=== PATIENT | male | born 1970 | race Caucasian/White ===

== ENCOUNTER 2021-04-11 10:48 | Emergency (ER) | payer SELFPAY ==
[2021-04-11] MEDS ORDERED: Sodium Chloride 0.9% 2.5 ML Syringe FLUSH PRN (12:13)
[2021-04-11] MEDS ORDERED: Sodium Chloride 0.9% 10 ML Syringe FLUSH PRN (12:13)
[2021-04-11] MEDS ORDERED: Ondansetron 4 MG/2 ML SDV IVPUSH ONE (12:20)
[2021-04-11] MEDS ORDERED: Ketorolac 30 MG/ML SDV IVPUSH ONE (12:20)
[2021-04-11] MEDS ORDERED: Morphine 4 MG/ML Syringe IVPUSH ONE ×3 (12:20→14:23)
--- NOTE | 2021-04-11 12:36 | PCM.SN.2 ---
- Free Text/Narrative Note: EKG done 04/11/2021 at 12:22 PM sinus rhythm heart rate 56 IA 155 axis I [address] slightly elevated at J-point in the lateral leads consistent with early repole T waves inverted in lead III and aVF. Compared to 08/30/2015 when he was seen for chest pain and rule out myocardial infarction the inversions of the T waves are new in the ST takeoff is slightly elevated. Computer read this is an acute SC but the patient does not have chest pain per se does have a tender abdomen and is a non-smoker and not diabetic. The patient will need follow-up EKG although this does not look like an acute SC. Impression early repole and T wave inversions suggesting the possibility of an intervening event including possible pericarditis between 2014 and now.
[2021-04-11 12:49] LABS: BLOOD UREA NITROGEN,BUN 22 mg/dL (7.0-18.0); CARBON DIOXIDE,CO2 27.6 mmol/L (21.0-32.0); CHLORIDE,CL 103 mmol/L (98-107); GLUCOSE RANDOM 90 mg/dL (74-106); LIPASE 159 U/L (73-393); POTASSIUM,K 4.5 mmol/L (3.5-5.1); SODIUM,NA 137 mmol/L (136-148)
[2021-04-11] MEDS ORDERED: Aspirin 81 MG Tab.Chew PO ONE (13:42)
--- NOTE | 2021-04-11 13:44 | PCM.SN.2 ---
- Free Text/Narrative Note: Joe EKG done 04/11/2021 at 1:38 PM sinus rhythm now read is incomplete right bundle yo block some ST elevation in the lateral leads and T wave inversion in the inferior leads heart rate 61 FL 161 [place] XVI not much change from prior EKG done today but significant change from 2015 impression no obvious acute MD.
[2021-04-11] MEDS ORDERED: Sodium Chloride 0.9% 1,000 ML IV ONE (13:52)
--- NOTE | 2021-04-11 14:10 | CT ---
INDICATION: Periumbilical abdominal pain. TECHNIQUE: CT abdomen and pelvis acquired with 100 cc Isovue 370 IV contrast. COMPARISON: None. FINDINGS: Lower chest: Unremarkable. Liver: Unremarkable. Normal in size and attenuation. No suspicious masses. Gallbladder and bile ducts: Post cholecystectomy with mild secondary biliary dilatation. Pancreas: Unremarkable. No mass or inflammation. Spleen: Unremarkable. Normal in size. No masses. Adrenal glands: Unremarkable. No nodules. Kidneys: There are a few punctate nonobstructive stones in the right kidney. No ureteral stones and no hydronephrosis. GI tract: Unremarkable. Normal in caliber. No sign of mass or inflammation. Normal appendix. Vasculature: Unremarkable. Mesenteric arteries are patent. Lymph nodes: No lymphadenopathy. Omentum/Peritoneum/Abdominal Wall: Small midline ventral hernia just above the umbilicus contains fat with moderate edema or inflammation. No intra-abdominal fluid collection or free air. Pelvis: Unremarkable. Bones: Bilateral pars defects at L5 with minimal spondylolisthesis at L5-S1. IMPRESSION: 1. Small midline ventral hernia just above the umbilicus contains fat with moderate edema/inflammation. 2. Mild nonobstructive right-sided nephrolithiasis. Please note that all CT scans at this facility use dose modulation, iterative reconstruction, and/or weight-based dosing when appropriate to reduce radiation dose to as low as reasonably achievable. Dictated by Aristides Pineda MD @ 04/11/2021 2:09:[address] Aristides Pineda @ Apr 11 2021 2:09PM
[2021-04-11] MEDS ORDERED: LORazepam 2 MG/ML SDV IVPUSH ONE (14:24)
--- NOTE | 2021-04-11 14:41 | EDM.PDOC ---
ED HPI GENERAL MEDICAL PROBLEM - General Chief Complaint: Abdominal Pain Stated Complaint: ABDOMINL PAIN Time Seen by Provider: 04/11/21 10:56 Source of Information: Reports: Patient History Limitations: Reports: No Limitations - History of Present Illness INITIAL COMMENTS - FREE TEXT/NARRATIVE: HISTORY AND PHYSICAL: History of present illness: Patient is a 50-year-old male who presents emergency room today with concern of periumbilical abdominal pain that started around 8 this morning. Patient states that the pain is worse when he presses on this area but it also radiates into his lower abdomen and upper abdomen. Patient states that he has not taken anything for his symptoms. Patient denies any health history but states he has had his gallbladder removed and denies any other abdominal surgeries. Patient denies any other resuscitative symptoms. Patient denies fever, chills, chest pain, shortness of breath, or cough. Denies headache, neck stiff ness, change in vision, syncope, or near syncope. Denies nausea, vomiting, diarrhea, constipation, or dysuria. Has not noted any blood in urine or stool. Patient has been eating and drinking appropriately. Review of systems: As per history of present illness and below otherwise all systems reviewed and negative. Past medical history: As per history of present illness and as reviewed below otherwise noncontribu tory. Surgical history: As per history of present illness and as reviewed below otherwise noncontributory. Social history: See social history for further information Family history: As per history of present illness and as reviewed below otherwise noncontributory. Physical exam: General: Patient is alert, oriented, and in no acute distress. Patient laying on exam table, holding lower abdomen. Vitals stable and reviewed by me. HEENT: Atraumatic, normocephalic, pupils equal and reactive bilaterally, negative for conjunctival pallor or scleral icterus, mucous membranes moist, TMs normal bilaterally, throat clear, neck supple, nontender, trachea midline. No drooling or trismus noted. No meningeal signs. No hot potato voice noted. Lungs: Clear to auscultation, breath sounds equal bilaterally, chest nontender. Heart: S1S2, regular rate and rhythm without overt murmur Abdomen: Soft, nondistended, severe periumbilical abdominal pain with guarding, possible hernia defect just superior to umbilicus, however, difficult to assess due to patient discomfort and asking to stop exam, negative ross/rebound. Negative for masses or hepatosplenomegaly. Negative for costovertebral tenderness. Pelvis: Stable nontender. Genitourinary: Deferred. Rectal: Deferred. Skin: Intact, warm, dry. No lesions or rashes noted. Extremities: Atraumatic, negative for cords or calf pain. Neurovascular unre markable. Neuro: Awake, alert, oriented. Cranial nerves II through XII unremarkable. Cerebellum unremarkable. Motor and sensory unremarkable throughout. Exam nonfocal. Notes: Patient is a 50-year-old otherwise healthy male, who presents emergency room today with concern of periumbilical abdominal pain starting at 8 this morning. Upon arrival to the ED, patient is vitally stable but does have sig nificant/severe periumbilical abdominal pain with guarding on exam. There is a possible hernia defect felt just superior to the umbilicus, however, patient request stopping the exam to further assess this. Will obtain cardiac and abdominal pelvic CT scan to assess patient's symptoms. See Dr. Ricci's dictation for specific EKG interpretation. NSR without STEMI While awaiting completion of patient's diagnostics, he did tell nursing staff that pain radiating into his chest. Repeat EKG performed. I did fully reevaluate patient, and this appears to be stemming from his periumbilical abdominal pain and although he had stated chest pain, he points just superior to his umbilicus. Will provide a dose of aspirin today given atypical EKG / possible ACS CBC shows increase in hemoglobin at 18.3 and hematocrit at 52.4. CMP shows a mild elevation in creatinine at 1.4 and BUN at 22. Isolated elevated total bilirubin at 1.5. Troponin negative. Lipase within normal limits. Urinalysis is clear. Abdominal pelvic CT scan shows small midline ventral hernia just above the umbilicus concerns fat with moderate edema and inflammation. Mild nonobstructive right-sided nephrolithiasis. See Dr. Ricci's dictation for specific EKG interpretation. NSR without STEMI. Patient was placed in Trendelenburg position with ice packs placed over area of ventral hernia. Repeat Trop negative. Upon reevaluation of patient, the hernia has self reduced with Trendelenburg position and ice packs after 30 minutes. Patient has drastic improvement of his discomfort. Strict return precautions thoroughly discussed with patient. Discussed importance for follow-up with primary care provider and general surgeon. Voices understanding and is agreeable to plan of care. Denies any further questions or concerns at this time. Diagnostics: EKG, CBC, CMP, UA, troponin, abdominal pelvic CT with contrast, lipase Therapeutics: Saline, morphine, Zofran, Toradol, ASA Prescription: None Impression: Ventral hernia Dehydration Plan: 1. You can alternate ibuprofen and Tylenol as directed for pain and discomfort. Encourage small but frequent sips of fluid to prevent dehydration. 2. Follow-up with your primary care provider and general surgeon as discussed. Return to the ED as needed and as discussed. Definitive disposition and diagnosis as appropriate pending reevaluation and review of above. lower abdomen, umbilicus Pain Score (Numeric/FACES): 8 - Related Data Allergies Allergy/AdvReac Type Severity Reaction Status Date / Time No Known Allergies Allergy Verified 04/11/21 11:44 Home Meds: Home Meds . [No Known Home Meds] 02/02/15 [History] Past Medical History - Past Health History Medical/Surgical History: Denies Medical/Surgical History Psychiatric History: Reports: Anxiety - Past Surgical History GI Surgical History: Reports: Cholecystectomy Social & Family History - Family History Cardiac: Reports: CAD, Hypertension, CA, Prior Cardiac Arrest Endocrine/Metabolic: Reports: Diabetes, Type I - Tobacco Use Tobacco Use Status *Q: Former Tobacco User Used Tobacco, but Quit: Yes Month/Year Tobacco Last Used: 20 - Recreational Drug Use Recreational Drug Use: No ED ROS GENERAL - Review of Systems Review Of Systems: Comprehensive ROS is negative, except as noted in HPI. ED EXAM, GENERAL - Physical Exam Exam: See Below (see dictation) Course - Vital Signs Last Recorded V/S: Last Vital Signs Temp 97.6 F 04/11/21 12:57 Pulse 66 04/11/21 14:00 Resp 14 04/11/21 12:57 BP 161/88 H 04/11/21 14:00 Pulse Ox 96 04/11/21 14:00 - Orders/Labs/Meds Orders: Active Orders 24 hr Category Date Time Status EKG Documentation Completion [RC] STAT Care 04/11/21 12:13 Active Sodium Chloride 0.9% [Saline Flush] Med 04/11/21 12:13 Active 10 ml FLUSH ASDIRECTED PRN Sodium Chloride 0.9% [Saline Flush] Med 04/11/21 12:13 Active 2.5 ml FLUSH ASDIRECTED PRN Saline Lock Insert [OM.PC] Stat Oth 04/11/21 12:13 Ordered Medication Orders Sodium Chloride (Sodium Chloride 0.9% 10 Ml Syringe) 10 ml FLUSH ASDIRECTED PRN PRN Reason: Keep Vein Open Last Admin: 04/11/21 12:49 Dose: 10 ml Documented by: LISA Sodium Chloride (Sodium Chloride 0.9% 2.5 Ml Syringe) 2.5 ml FLUSH ASDIRECTED PRN PRN Reason: Keep Vein Open Last Admin: 04/11/21 12:49 Dose: 2.5 ml Documented by: LISA Labs: Laboratory Tests 04/11/21 04/11/21 04/11/21 Range/Units 11:54 12:16 12:16 WBC 6.65 (4.0-11.0) K/uL RBC 5.81 (4.50-5.90) M/uL Hgb 18.3 H (13.0-17.0) g/dL Hct 52.4 H (38.0-50.0) % MCV 90.2 (80.0-98.0) fL MCH 31.5 (27.0-32.0) pg MCHC 34.9 (31.0-37.0) g/dL RDW Std Deviation 43.2 (28.0-62.0) fl RDW Coeff of [place]ag[place] 13 (11.0-15.0) % Plt Count 187 (150-400) K/uL MPV 9.80 (7.40-12.00) fL Neut % (Auto) 61.3 (48.0-80.0) % Lymph % (Auto) 28.0 (16.0-40.0) % [place] % (Auto) 9.6 (0.0-15.0) % Eos % (Auto) 0.8 (0.0-7.0) % Baso % (Auto) 0.3 (0.0-1.5) % Neut # (Auto) 4.1 (1.4-5.7) K/uL Lymph # (Auto) 1.9 (0.6-2.4) K/uL [place] # (Auto) 0.6 (0.0-0.8) K/uL Eos # (Auto) 0.1 (0.0-0.7) K/uL Baso # (Auto) 0.0 (0.0-0.1) K/uL Nucleated RBC % 0.0 /100WBC Nucleated RBCs # 0 K/uL Sodium 137 (136-148) mmol/L Potassium 4.5 (3.5-5.1) mmol/L Chloride 103 (98-107) mmol/L Carbon Dioxide 27.6 (21.0-32.0) mmol/L BUN 22 H (7.0-18.0) mg/dL Creatinine 1.4 H (0.8-1.3) mg/dL Est Cr Clr Drug Dosing 72.13 mL/min Estimated GFR (MDRD) 53.9 ml/min Glucose 90 (74-106) mg/dL Calcium 8.4 L (8.5-10.1) mg/dL Total Bilirubin 1.5 H (0.2-1.0) mg/dL AST 24 (15-37) IU/L ALT 39 (14-63) IU/L Alkaline Phosphatase 49 (46-116) U/L Troponin I < 0.050 (0.000-0.056) ng/mL Total Protein 7.1 (6.4-8.2) g/dL Albumin 4.1 (3.4-5.0) g/dL Globulin 3.0 (2.6-4.0) g/dL Albumin/Globulin Ratio 1.4 (0.9-1.6) Lipase 159 (73-393) U/L Urine Color YELLOW Urine Appearance CLEAR Urine pH 6.0 (5.0-8.0) Ur Specific [place] 1.025 (1.001-1.035) Urine Protein NEGATIVE (NEGATIVE) mg/dL Urine Glucose (UA) NEGATIVE (NEGATIVE) mg/dL Urine Ketones NEGATIVE (NEGATIVE) mg/dL Urine Occult Blood NEGATIVE (NEGATIVE) Urine Nitrite NEGATIVE (NEGATIVE) Urine Bilirubin NEGATIVE (NEGATIVE) Urine Urobilinogen 0.2 (<2.0) EU/dL Ur Leukocyte Esterase NEGATIVE (NEGATIVE) 04/11/21 Range/Units 15:20 WBC (4.0-11.0) K/uL RBC (4.50-5.90) M/uL Hgb (13.0-17.0) g/dL Hct (38.0-50.0) % MCV (80.0-98.0) fL MCH (27.0-32.0) pg MCHC (31.0-37.0) g/dL RDW Std Deviation (28.0-62.0) fl RDW Coeff of [place]aghan (11.0-15.0) % Plt Count (150-400) K/uL MPV (7.40-12.00) fL Neut % (Auto) (48.0-80.0) % Lymph % (Auto) (16.0-40.0) % [place] % (Auto) (0.0-15.0) % Eos % (Auto) (0.0-7.0) % Baso % (Auto) (0.0-1.5) % Neut # (Auto) (1.4-5.7) K/uL Lymph # (Auto) (0.6-2.4) K/uL [place] # (Auto) (0.0-0.8) K/uL Eos # (Auto) (0.0-0.7) K/uL Baso # (Auto) (0.0-0.1) K/uL Nucleated RBC % /100WBC Nucleated RBCs # K/uL Sodium (136-148) mmol/L Potassium (3.5-5.1) mmol/L Chloride (98-107) mmol/L Carbon Dioxide (21.0-32.0) mmol/L BUN (7.0-18.0) mg/dL Creatinine (0.8-1.3) mg/dL Est Cr Clr Drug Dosing mL/min Estimated GFR (MDRD) ml/min Glucose (74-106) mg/dL Calcium (8.5-10.1) mg/dL Total Bilirubin (0.2-1.0) mg/dL AST (15-37) IU/L ALT (14-63) IU/L Alkaline Phosphatase (46-116) U/L Troponin I < 0.050 (0.000-0.056) ng/mL Total Protein (6.4-8.2) g/dL Albumin (3.4-5.0) g/dL Globulin (2.6-4.0) g/dL Albumin/Globulin Ratio (0.9-1.6) Lipase (73-393) U/L Urine Color Urine Appearance Urine pH (5.0-8.0) Ur Specific [place] (1.001-1.035) Urine Protein (NEGATIVE) mg/dL Urine Glucose (UA) (NEGATIVE) mg/dL Urine Ketones (NEGATIVE) mg/dL Urine Occult Blood (NEGATIVE) Urine Nitrite (NEGATIVE) Urine Bilirubin (NEGATIVE) Urine Urobilinogen (<2.0) EU/dL Ur Leukocyte Esterase (NEGATIVE) Meds: Medications Generic Name Dose Route Start Last Admin Trade Name Freq PRN Reason Stop Dose Admin Sodium Chloride 10 ml 04/11/21 12:13 04/11/21 12:49 Sodium Chloride 0.9% 10 Ml Syringe FLUSH 10 ml ASDIRECTED PRN Administration Keep Vein Open Sodium Chloride 2.5 ml 04/11/21 12:13 04/11/21 12:49 Sodium Chloride 0.9% 2.5 Ml Syringe FLUSH 2.5 ml ASDIRECTED PRN Administration Keep Vein Open Discontinued Medications Generic Name Dose Route Start Last Admin Trade Name Freq PRN Reason Stop Dose Admin Aspirin 324 mg 04/11/21 13:42 04/11/21 13:45 Aspirin 81 Mg Tab.Chew PO 04/11/21 13:43 324 mg ONETIME ONE Administration Sodium Chloride 1,000 mls @ 999 mls/hr 04/11/21 13:52 04/11/21 13:59 Normal Saline IV 04/11/21 14:52 999 mls/hr STAT ONE Administration Ketorolac Tromethamine 30 mg 04/11/21 12:20 04/11/21 12:49 Ketorolac 30 Mg/Ml Sdv IVPUSH 04/11/21 12:21 30 mg ONETIME ONE Administration Lorazepam 1 mg 04/11/21 14:24 04/11/21 14:42 Lorazepam 2 Mg/Ml Sdv IVPUSH 04/11/21 14:25 1 mg ONETIME ONE Administration Morphine Sulfate 4 mg 04/11/21 12:20 04/11/21 12:50 Morphine 4 Mg/Ml Syringe IVPUSH 04/11/21 12:21 4 mg ONETIME ONE Administration Morphine Sulfate 4 mg 04/11/21 13:44 04/11/21 13:50 Morphine 4 Mg/Ml Syringe IVPUSH 04/11/21 13:45 4 mg ONETIME ONE Administration Morphine Sulfate 4 mg 04/11/21 14:23 04/11/21 14:42 Morphine 4 Mg/Ml Syringe IVPUSH 04/11/21 14:24 4 mg ONETIME ONE Administration Ondansetron HCl 4 mg 04/11/21 12:20 04/11/21 12:49 Ondansetron 4 Mg/2 Ml Sdv IVPUSH 04/11/21 12:21 4 mg ONETIME ONE Administration Departure - Departure Time of Disposition: 16:01 Disposition: Home, Self-Care 01 Clinical Impression: Dehydration Ventral hernia Qualifiers: Obstruction and gangrene presence: with obstruction but without gangrene Qualified Code(s): K43.6 - Other and unspecified ventral hernia with obstruction, without gangrene - Discharge Information Referrals: PCP,None [Primary Care Provider] - Forms: ED Department Discharge Additional Instructions: The following information is given to patients seen in the emergency department who are being discharged to home. This information is to outline your options for follow-up care. We provide all patients seen in our emergency department with a follow-up referral. The need for follow-up, as well as the timing and circumstances, are variable depending upon the specifics of your emergency department visit. If you don't have a primary care physician on staff, we will provide you with a referral. We always advise you to contact your personal physician following an emergency department visit to inform them of the circumstance of the visit and for follow-up with them and/or the need for any referrals to a consulting specialist. The emergency department will also refer you to a specialist when appropriate. This referral assures that you have the opportunity for follow-up care with a specialist. All of these measure are taken in an effort to provide you with optimal care, which includes your follow-up. Under all circumstances we always encourage you to contact your private physician who remains a resource for coordinating your care. When calling for follow-up care, please make the office aware that this follow-up is from your recent emergency room visit. If for any reason you are refused follow-up, please contact the [facility] Emergency Department at and asked to speak to the emergency department charge nurse. [facility] [address] [place] [id number] [facility] [address] [place] [address] [facility] - General Surgery Professional Building [address] [facility], [address] [place] [address] 1. You can alternate ibuprofen and Tylenol as directed for pain and discomfort. Encourage small but frequent sips of fluid to prevent dehydration. 2. Follow-up with your primary care provider and general surgeon as discussed. Return to the ED as needed and as discussed. Sepsis Event Note (ED) - Evaluation Sepsis Screening Result: No Definite Risk - Focused Exam Vital Signs: Vital Signs Temp Pulse Resp BP Pulse Ox 04/11/21 14:00 66 161/88 H 96 04/11/21 13:51 67 173/97 H 98 04/11/21 13:46 67 161/101 H 98 04/11/21 13:31 59 L 141/85 H 97 04/11/21 12:57 97.6 F 61 14 143/79 H 94 L 04/11/21 12:32 58 L 135/79 97 04/11/21 12:02 61 147/83 H 96 04/11/21 11:41 98.1 F 66 18 181/95 H 95 - My Orders Last 24 Hours: My Active Orders 04/11/21 12:13 EKG Documentation Completion [RC] STAT Sodium Chloride 0.9% [Saline Flush] 10 ml FLUSH ASDIRECTED PRN Sodium Chloride 0.9% [Saline Flush] 2.5 ml FLUSH ASDIRECTED PRN Saline Lock Insert [OM.PC] Stat - Assessment/Plan Last 24 Hours: My Active Orders 04/11/21 12:13 EKG Documentation Completion [RC] STAT Sodium Chloride 0.9% [Saline Flush] 10 ml FLUSH ASDIRECTED PRN Sodium Chloride 0.9% [Saline Flush] 2.5 ml FLUSH ASDIRECTED PRN Saline Lock Insert [OM.PC] Stat
[2021-04-11 16:10] VITALS: BP 142/80; PULSE 71
== END 2021-04-11 16:22 | disposition home or self-care (01) ==
LOC: MW.ED 10:48
DX: K43.9 Ventral hernia without obstruction or gangrene (principal); E86.0 Dehydration; Z87.891 Personal history of nicotine dependence
CPT/HCPCS: 36415; 74177; 80053; 81003; 83690; 84484; 85025; 93005; 96374; 96375; 96376; 99284; A9270; J1885; J2060; J2270; J2405; J7030

== ENCOUNTER 2021-05-24 06:13 | Day surgery (SDC) | payer BC ==
[~2021-05-24 06:13] MED LIST: Acetaminophen 1,000 MG in Premix Bag 1 BAG IV ONE; Lactated Ringers 1,000 ML IV SCH; Pregabalin 75 MG Cap PO ONE; ceFAZolin 1 GM in Premix Bag 1 BAG IV ONE
[2021-05-24] MEDS ORDERED: Pregabalin 75 MG Cap ONE (06:18)
[2021-05-24] MEDS ORDERED: Bupivacaine 25%/EPINEPHrine/PF 60 ML ONE (07:00)
[2021-05-24] MEDS ORDERED: Bupivacaine 0.5% 10 ML SDV ONE (07:22)
[2021-05-24] MEDS ORDERED: Octyl 2-Cyanoacrylate 1 Tube ONE ×2 (07:22→09:32)
[2021-05-24] MEDS ORDERED: fentaNYL 250 MCG/5 ML SDV ONE ×2 (07:24→08:43)
[2021-05-24] MEDS ORDERED: Propofol 200 MG/20 ML SDV ONE (07:24)
[2021-05-24] MEDS ORDERED: Morphine 2 MG/ML SYRINGE IVPUSH PRN (07:35)
[2021-05-24] MEDS ORDERED: Ondansetron 4 MG/2 ML SDV IVPUSH PRN (07:35)
[2021-05-24] MEDS ORDERED: Naloxone 0.4 MG/ML SDV IVPUSH PRN (07:35)
[2021-05-24] MEDS ORDERED: Metoclopramide 10 MG/2 ML SDV IVPUSH PRN (07:35)
[2021-05-24] MEDS ORDERED: HYDROmorphone 1 MG/ML Syringe IVPUSH PRN (07:35)
[2021-05-24] MEDS ORDERED: fentaNYL 100 MCG/2 ML SDV IVPUSH PRN (07:35)
[2021-05-24] MEDS ORDERED: Albuterol 0.083% 2.5 MG/3 ML Neb Soln NEB PRN (07:35)
--- NOTE | 2021-05-24 07:35 | PCM.PREANE ---
Preanesthetic Assessment - Anesthesia/Transfusion/Family Hx Anesthesia History: Prior Anesthesia Without Reaction Family History of Anesthesia Reaction: No Transfusion History: No Prior Transfusion(s) - Review of Systems General: No Symptoms Pulmonary: No Symptoms Cardiovascular: No Symptoms Gastrointestinal: Abdominal Pain, Constipation, Diarrhea, Flatus Neurological: No Symptoms Other: Reports: None, Anxiety - Physical Assessment NPO Status Date: 05/24/21 NPO Status Time: 00:00 Vital Signs: Last Vital Signs Temp 98.1 F 05/24/21 06:38 Pulse 69 05/24/21 06:38 Resp 16 05/24/21 06:38 BP 139/93 H 05/24/21 06:38 Pulse Ox 96 05/24/21 06:38 Height: 6 ft 2 in Weight: 270 lb ASA Class: 3 Mental Status: Alert & Oriented x3 Airway Class: Mallampati = 2 Dentition: Reports: Missing Tooth/Teeth ROM/Head Extension: Full Lungs: Clear to Auscultation, Normal Respiratory Effort Cardiovascular: Regular Rate, Regular Rhythm - Allergies Allergies/Adverse Reactions: Allergies Allergy/AdvReac Type Severity Reaction Status Date / Time No Known Allergies Allergy Verified 05/22/21 11:18 - Acknowledgements Anesthesia Type Planned: General Anesthesia Pt an Appropriate Candidate for the Planned Anesthesia: Yes Alternatives and Risks of Anesthesia Discussed w Pt/Guardian: Yes Pt/Guardian Understands and Agrees with Anesthesia Plan: Yes PreAnesthesia Questionnaire - Past Health History Medical/Surgical History: Denies Medical/Surgical History HEENT History: Reports: Other (See Below) Other HEENT History: top and bottom dentures Cardiovascular History: Reports: None Respiratory History: Reports: None Gastrointestinal History: Reports: Other (See Below) Other Gastrointestinal History: occasional heartburn Genitourinary History: Reports: None Musculoskeletal History: Reports: None Neurological History: Reports: None Psychiatric History: Reports: Anxiety Endocrine/Metabolic History: Reports: Obesity/BMI 30+ Hematologic History: Reports: None Immunologic History: Reports: None Oncologic (Cancer) History: Reports: None Dermatologic History: Reports: None - Past Surgical History Head Surgeries/Procedures: Reports: None HEENT Surgical History: Reports: None Cardiovascular Surgical History: Reports: None Respiratory Surgical History: Reports: None GI Surgical History: Reports: Cholecystectomy Male Surgical History: Reports: None Endocrine Surgical History: Reports: None Neurological Surgical History: Reports: None Musculoskeletal Surgical History: Reports: None Oncologic Surgical History: Reports: None Dermatological Surgical History: Reports: None - SUBSTANCE USE Tobacco Use Status *Q: Former Tobacco User Tobacco Use Within Last Twelve Months: Cigarettes - HOME MEDS Home Medications: Home Meds Ibuprofen 2 tab PO ASDIRECTED PRN 05/04/21 [History] - CURRENT (IN HOUSE) MEDS Current Meds: Current Medications Lactated Ringer's (Ringers, Lactated) 1,000 mls @ 125 mls/hr IV ASDIRECTED [facility] Last Admin: 05/24/21 06:42 Dose: 125 mls/hr Documented by: Cefoxitin Sodium 2 gm/ Premix 50 mls @ 100 mls/hr IV ONETIME ONE Stop: 05/24/21 09:42 Acetaminophen 1,000 mg/ Premix 100 mls @ 400 mls/hr IV ONCALL ONE Stop: 05/24/21 09:27 Pregabalin (Pregabalin 75 Mg Cap) 150 mg PO ONETIME ONE Stop: 05/24/21 09:14 Discontinued Medications Bupivacaine HCl (Bupivacaine 0.5% 10 Ml Sdv) Confirm Administered Dose 20 ml .ROUTE .STK-MED ONE Stop: 05/24/21 07:23 Fentanyl (Fentanyl 250 Mcg/5 Ml Sdv) Confirm Administered Dose 250 mcg .ROUTE .STK-MED ONE Stop: 05/24/21 07:25 Acetaminophen 1,000 mg/ Premix 100 mls @ 400 mls/hr IV ONCALL ONE Stop: 04/28/21 11:47 Last Admin: 05/24/21 06:45 Dose: 400 mls/hr Documented by: Cefazolin Sodium/Dextrose 1 gm (/ Premix) 50 mls @ 100 mls/hr IV ONETIME ONE Stop: 04/28/21 12:02 Acetaminophen (Ofirmev 1000 Mg/100 Ml) Confirm Administered Dose 100 mls @ as directed .ROUTE .STK-MED ONE Stop: 05/24/21 06:20 Bupivacaine HCl/Epinephrine Bitart (Sensorc Mpf 0.25%-Epi 1:[id number]) Confirm Administered Dose 60 mls @ as directed .ROUTE .STK-MED ONE Stop: 05/24/21 07:01 Octyl Cyanoacrylate (Octyl 2-Cyanoacrylate 1 Tube) Confirm Administered Dose 1 applic .ROUTE .STK-MED ONE Stop: 05/24/21 07:23 Pregabalin (Pregabalin 75 Mg Cap) 150 mg PO ONETIME ONE Stop: 04/28/21 11:34 Pregabalin (Pregabalin 75 Mg Cap) Confirm Administered Dose 150 mg .ROUTE .STK- MED ONE Stop: 05/24/21 06:19 Last Admin: 05/24/21 06:44 Dose: 150 mg Documented by: Propofol (Propofol 200 Mg/20 Ml Sdv) Confirm Administered Dose 200 mg .ROUTE .STK-MED ONE Stop: 05/24/21 07:25
--- NOTE | 2021-05-24 08:34 | PCM.SN.2 ---
Time Documentation - Free Text/Narrative Note: Anesthesia Start:754 Anesthesia End: 758 Procedure: Following patient consent and a block time out Bilateral US guided TAPs blocks were placed using a 6 inch 22g stimuplex needle and 30 cc 0.5% Bupivicaine with epi per side. Full monitoring was utilized throughout pr ocedure. Nerve block was single injection per side and patient tolerated the procedure well. Sergio Slade MD
[2021-05-24] MEDS ORDERED: Sodium Chloride 0.9% 20 ML ONE (09:04)
[2021-05-24] MEDS ORDERED: Ondansetron 4 MG/2 ML SDV ONE (09:04)
[2021-05-24] MEDS ORDERED: Dexamethasone 4 MG/ML 5 ML MDV ONE (09:04)
[2021-05-24] MEDS ORDERED: Rocuronium Bromide 50 MG/5 ML Syringe ONE (09:04)
[2021-05-24] MEDS ORDERED: Glycopyrrolate 0.2 MG/ML SDV ONE (09:04)
[2021-05-24] MEDS ORDERED: Sugammadex Sodium 200 MG/2 ML VIAL ONE (09:04)
[2021-05-24] MEDS ORDERED: ePHEDrine 50 MG/ML SDV ONE (09:04)
[2021-05-24] MEDS ORDERED: Lidocaine 2% Jelly 30 ML Tube ONE (09:04)
[2021-05-24] MEDS ORDERED: Ketorolac 30 MG/ML SDV ONE (09:04)
[2021-05-24] MEDS ORDERED: cefOXitin 100 ML ONE (09:05)
[2021-05-24] MEDS ORDERED: Acetaminophen 1,000 MG in Premix Bag 1 BAG IV ONE (09:13)
[2021-05-24] MEDS ORDERED: cefOXitin 2 GM in Premix Bag 1 BAG IV ONE (09:13)
[2021-05-24] MEDS ORDERED: Pregabalin 75 MG Cap PO ONE (09:13)
--- NOTE | 2021-05-24 09:48 | PCM.OPNOTE ---
- General Post-Op/Procedure Note Date of Surgery/Procedure: 05/24/21 Operative Procedure(s): Laparoscopic ventral hernia repair Findings: Ventral/umbilical hernia dictation number [id number] Pre Op Diagnosis: ventral hernia Post-Op Diagnosis: Ventral/umbilical hernia Anesthesia Technique: General ET Tube Primary Surgeon: Jimmy Ballard Pathology: Hernia sac EBL in mLs: 10 Complications: None Condition: Good
--- NOTE | 2021-05-24 10:11 | PCM.POSTAN ---
POST ANESTHESIA ASSESSMENT - MENTAL STATUS Mental Status: Alert, Oriented - VITAL SIGNS Vital Signs: Last Vital Signs Temp 98.1 F 05/24/21 06:38 Pulse 69 05/24/21 06:38 Resp 16 05/24/21 06:38 BP 139/93 H 05/24/21 06:38 Pulse Ox 96 05/24/21 06:38 - RESPIRATORY Respiratory Status: Respiratory Rate WNL, Airway Patent, O2 Saturation Stable - CARDIOVASCULAR CV Status: Pulse Rate WNL, Blood Pressure Stable - GASTROINTESTINAL GI Status: No Symptoms - POST OP HYDRATION Hydration Status: Adequate & Stable
--- NOTE | 2021-05-24 10:12 | PCM48HPAN ---
Post Anesthesia Note - EVALUATION WITHIN 48HRS OF ANESTHETIC Vital Signs in Normal Range: Yes Patient Participated in Evaluation: Yes Respiratory Function Stable: Yes Airway Patent: Yes Cardiovascular Function Stable: Yes Hydration Status Stable: Yes Pain Control Satisfactory: Yes Nausea and Vomiting Control Satisfactory: Yes Mental Status Recovered: Yes Vital Signs: Last Vital Signs Temp 98.1 F 05/24/21 06:38 Pulse 69 05/24/21 06:38 Resp 16 05/24/21 06:38 BP 139/93 H 05/24/21 06:38 Pulse Ox 96 05/24/21 06:38
[2021-05-24] MEDS ORDERED: Acetaminophen/HYDROcodone 325-5 MG Tab PO PRN (10:51)
[2021-05-24] MEDS ORDERED: Acetaminophen/HYDROcodone 325-5 MG Tab ONE (10:56)
[2021-05-24 12:29] VITALS: BP 132/77; PULSE 70
--- NOTE | 2021-05-24 16:47 | OR ---
SURGEON: HORTENSIA VÁSQUEZ MD DATE OF PROCEDURE: 05/24/2021 PREOPERATIVE DIAGNOSIS: Ventral hernia. POSTOPERATIVE DIAGNOSIS: Kind of ventral/umbilical hernia. PROCEDURE PERFORMED: Repair of the ventral umbilical hernia with mesh laparoscopically. PRIMARY SURGEON: Hortensia Vásquez MD ANESTHESIA: General. ESTIMATED BLOOD LOSS: 10 mL. PATHOLOGY: Hernia sac. COMPLICATIONS: None. REASON FOR PROCEDURE: Patient is a pleasant 50-year-old gentleman who has had issues with hernia just above his umbilicus. It is popping in and out. If the patient gets down, it gets stuck and becomes very painful. He has gone to the ER to have it reduced. I did go over with the patient risks, goals, and alternatives of surgery. Risks included, but were not limited to bleeding, infection, mesh infection, recurrence, chronic pain, scar formation, need to convert to open, mesh migration, and adhesions. The patient understands, wishes to proceed. OPERATIVE NARRATIVE: The patient was brought back to the OR. He was prepped and draped in usual sterile fashion. SCDs placed. Preop antibiotics given. Anesthesia provided by the Anesthesia team. They also did a TAP block. After time-out was performed, an incision was made in the left upper quadrant. A 5 mm trocar was placed under visualization with the camera in the trocar. Insufflation was began and pneumoperitoneum was established. There appeared to be no entry wound. The patient did have what looked to be some omentum up into a hernia defect right above his umbilicus. Now, a 12 mm trocar was placed in the left lower abdomen. The omentum was reduced. Now, another 5 mm trocar was placed on the left side. The hernia sac was reduced and removed with a Harmonic scalpel. Now, a small incision was made right above the umbilicus and then the hernia defect was closed with 0 Vicryl in a [id number] suture x2, it closed nicely. Next, a piece of Ventralight ST mesh was placed. It was 10 x 15 cm piece through the 12 mm trocar. It was placed using the Echo 2 placement system. The mesh laid nice, although when we placed it, his falciform ligament actually came down a little further, so we had to release a little bit of falciform ligament. After this was done, the mesh laid nice and flat. It was then secured in place around the periphery with absorbable Bard AbsorbaTack Tacker. I did place a 5 mm trocar on the right side to help with this. Now, the Echo 2 positioning system was removed and a second crown of tacks were placed. Now, the fascia was again secured with four transfascial sutures. Again, the mesh laid nice and flat, good coverage of our hernia defect. There was good hemostasis. Now, the omentum was brought down. The 12 mm trocar was removed and closed with 0 Vicryl. The pneumoperitoneum was released. The mesh again came down nicely and remained in good position. The 5 mm trocars were all removed. The rest of the local was injected in trocar sites and they were closed with 4-0 Monocryl and Dermabond. The small incisions from the transfascial sutures were closed with Dermabond. At the end of the case, sponge and needle counts were correct, and the patient was transferred to recovery room in stable condition. CHRISTIE / ROCHELLE /[id number]
== END 2021-05-24 11:36 | disposition home or self-care (01) ==
LOC: MW.SDS 06:13
PROVIDERS: ATTEND Surgery
DX: K42.9 Umbilical hernia without obstruction or gangrene (principal); Z90.49 Acquired absence of other specified parts of digestive tract; Z87.891 Personal history of nicotine dependence
CPT/HCPCS: 49652; A9270; C1781; J0131; J0330; J0694; J1100; J1885; J2405; J2704; J3010; J3490; J7120